=== PATIENT | male | born 2005 | race Caucasian/White ===

== ENCOUNTER 2025-02-18 10:18 | Outpatient (AMB) | payer OTHER, SELFPAY ==
--- NOTE | 2025-02-18 10:27 | MHC.PC.OV ---
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 Satellite Technician Required: No Accompanied by: Self / Same As Patient Allergies No Known Allergies Allergy (Verified 02/18/25 11:08) Medication List - Last Reconciled 02/18/25 by SHELBY Schmidt No Known Home Meds Tobacco use date assessed: 02/18/25 Dental Screening Dental Screen Date: 02/18/25 Did you have a dental visit in the last 12 months?: Yes Did you have a dental problem in the last 6 months where you did not have access to dental care?: No Was dental information given to patient?: Patient has dentist HPI 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 type 1. Both parents are fine. Problem: Establishing care, no concerns today. The patient reports right posterior neck cyst that has been present for a year reports popping it and it got bigger about 9 months ago The cyst area does not hurt, but he is aware that it is present [facility] Family History (Updated 02/18/25 @ 23:41 by SHELBY Schmidt) Sister Diabetes mellitus Sister Diabetes mellitus Social History Housing: House Patient Tobacco Use Status: Never used Tobacco Current occupational status: employed Questionnaire PHQ-9 Over the last 2 weeks, how often have you been bothered by any of the following problems? 1. Little interest or pleasure in doing things: not at all 2. Feeling down, depressed, or hopeless: not at all 3. Trouble falling or staying asleep, or sleeping too much: not at all 4. Feeling tired or having little energy: not at all 5. Poor appetite or overeating: not at all 6. Feeling bad about yourself - or that you are a failure or have let yourself or your family down: not at all 7. Trouble concentrating on things, such as reading the newspaper or watching television: not at all 8. Moving or speaking so slowly that other people could have noticed. Or the opposite - being so fidgety or restless that you have been moving around a lot more than usual: not at all 9. Thoughts that you would be better off or of hurting yourself in some way: not at all Total score: 0 Depression Screening Interpretation: Negative Depression Screening Done: Yes 42420 - PHQ-9 Billing: Yes Source: Developed by Drs. Crescencio Verma, Kaila De Santiago, Omar Parker and colleagues, with an educational deya from [employer]. Thrive Questionnaire Date Thrive assessed: 02/18/25 I am a: Patient What is your living situation today?: I have a steady place to live Within the past 12 months, did the food you bought not last and you didn't have the money to get more?: Never true Within the past 12 months, did you worry whether your food would run out before you got money to buy more?: Sometimes True Do you have trouble paying for medicines?: No Do you have trouble getting transportation to medical appointments?: No Do you have trouble paying your heating and electricity bill?: No Do you have trouble taking care of your child, family member or friend?: No Do you have trouble with day-to-day activities such as bathing, preparing meals, shopping, managing finances, etc.?: No Are you currently unemployed and looking for a job?: No Are you interested in more education?: Yes Please select the resources that you would like help with: None Currently or been in a relationship where the following occur: No concerns reported THRIVE Score: 1 AUDIT C Alcohol Use Questionnaire (AUDIT-C) 1. How often do you have a drink containing alcohol?: Never Total Score: 0 YARI-7 AMB Questionnaire YARI-7 Date YARI - 7 assessed: 02/18/25 Feeling nervous, anxious, or on edge: 0 = Not at all Not being able to stop or control worryin = Not at all Worrying too much about different things: 0 = Not at all Trouble relaxin = Not at all Being so restless that it is hard to sit still: 0 = Not at all Becoming easily annoyed or irritable: 0 = Not at all Feeling afraid as if something awful might happen: 0 = Not at all Total YARI-7 score (0-4 normal; 5-9 mild; 10-14 moderate; 15-21 severe): 0 Source: Developed by Drs. Crescencio Verma, Kaila De Santiago, Omar Parker and colleagues, with an educational deya from [employer]. YARI-7 Assessment Billing YARI-7 Assessment Tool: YARI-7 Assessment 25581 Review of Systems Const Denies headache(s) Eyes Denies loss of vision ENT Denies vertigo, Denies dizziness, Denies headache(s), Denies sore throat and Reports other (Right posterior neck cyst) Card Denies chest pain, Denies leg edema and Denies lightheadedness Resp Denies cough, Denies hemoptysis and Denies wheezing GI Denies abdominal pain, Denies melena, Denies constipation, Denies diarrhea and Denies vomiting Denies dysuria, Denies urinary frequency and Denies urinary urgency Musc Denies arthralgias, Denies joint swelling, Denies numbness and Denies tingling Skin/Breast Denies rash Neuro Denies Abnormal speech present, Denies behavioral changes, Denies vertigo, Denies dizziness, Denies headache(s), Denies loss of vision, Denies memory loss, Denies numbness and Denies tingling Psych Denies anxiety, Denies behavioral changes, Denies depression, Denies memory loss and Denies panic attacks Mahamed/Lymph Denies easy bleeding and Denies easy bruising Aller/Immun Denies wheezing Physical exam (Primary Care) Vital Signs: Last Vital Signs Temp 99.2 F 02/18/25 10:29 Pulse 79 02/18/25 10:29 Resp 16 02/18/25 10:29 BP 116/74 02/18/25 10:29 Pulse Ox 100 02/18/25 10:29 Oxygen Delivery Method Room Air 02/18/25 10:29 BMI result Body Mass Index 28.7 Tobacco/Smoking Status: Tobacco use Status Tobacco use date assessed 02/18/25 02/18/25 10:28 Patient Tobacco Use Status Never used Tobacco 02/18/25 10:35 PHQ-9: PHQ-9 Score PHQ-9: Total score 0 02/18/25 11:15 Depression Screening Interpretation: Negative Thrive Assessment: Date of Thrive Assessment Date Thrive assessed 02/18/25 02/18/25 10:28 Currently or been in a relationship where the following occur: No concerns reported Const General: healthy appearing, no acute distress, alert and awake Nutritional Appearance: well nourished Orientation/consciousness: oriented to person, oriented to place and oriented to time HENMT Ears: TM's normal bilaterally General nose exam: Normal nasal mucous membranes and turbinates present Eyes Conjunctivae: conjunctivae normal Sclerae: sclerae normal Pupils: Equal, round and reactive pupils present Neck Neck: Yes supple, Yes no JVD and Yes other (right posterior neck cyst) Thyroid: Thyroid normal Carotids: no bruits Resp Effort & Inspection: normal respiratory effort and not tachypneic Auscultation: no crackles, no rales, no rhonchi and no wheezes Cardio Rate: regular rate Rhythm: regular rhythm Heart sounds: no murmurs and normal S1 and S2 GI Palpation (GI): Soft to palpation, nontender, no hepatomegaly and no splenomegaly Auscultation: normal bowel sounds Skin General skin exam: dry skin Lesions: lesion noted (right posterior neck cyst) Neuro General: oriented to person, oriented to place and oriented to time Cranial nerves: Yes Equal, round and reactive pupils present Speech: No Abnormal speech present Gait exam (Neuro): Normal gait present Motor exam (neuro): no tremor noted Extrem Right upper extremity: full ROM Left upper extremity: full ROM Right lower extremity: full ROM; no edema Left lower extremity: full ROM; no edema Psych Mental Status: mental status grossly normal Speech and movement: Normal speech and movement present Affect: normal affect Attitude: cooperative Thought process: Normal thought process present Coding Level of Care Code New Pt Level 3 (91918) Diagnoses Dermoid cyst D36.9 Additional Codes YARI-7 Assessment Billing - YARI-7 Assessment Tool: YARI-7 Assessment 80448 ([id number]) PHQ-9 - 60417 - PHQ-9 Billing: Yes ([id number]) Time Spent (min) 35 Assessment & Plan Assessment & Plan (1) Dermoid cyst: Code(s): D36.9 - Benign neoplasm, unspecified site Category: Medical Plan: Soft tissue ultrasound to neck ordered. He is establishing care. Labs ordered, will advise Orders: Orders US soft tiss head and/or neck Today D36.9 - Benign neoplasm, unspecified site Comprehensive [place]. Panel Fast Today Z00.00 - Encounter for general adult medical examination without abnormal findings Lipid Panel Today Z00.00 - Encounter for general adult medical examination without abnormal findings UA CC w/rflx Micro + Cult Today Z00.00 - Encounter for general adult medical examination without abnormal findings Vitamin D 25-OH Total Today Z00.00 - Encounter for general adult medical examination without abnormal findings Complete Blood Count Auto Diff Today Z00.00 - Encounter for general adult medical examination without abnormal findings TSH reflex Free T4 Today Z00.00 - Encounter for general adult medical examination without abnormal findings
[2025-02-18 10:29] VITALS: BP 116/74; PULSE 79; RESP 16; TEMP 37.3; O2SAT 100; BMI 28.7
--- OUTSIDE RECORDS SUMMARY | 2025-02-18 11:28 | XMS_ITS | Clinical Summary ---
Author Organization [employer] Address [address] [place] [address] Care Team Providers Care Firebrick And Refractory Tile Repairer Name Role Phone Unavailable Primary Care Provider Unavailabl e Allergies No known active allergies Social History Tobacco Use Types Packs/Day Years Used Date Smoking Tobacco: Never Assessed Sex and Gender Information Value Date Recorded Sex Assigned at Male 06/06/2022 10:38 AM EDT Legal Sex Male 10:38 AM EDT Gender Identity Male 06/06/2022 10:38 AM EDT Sexual Orientation Don't know 06/06/2022 10 :38 AM EDT Plan of Treatment Health Maintenance Due Date Last Done Comments Depression Screening 2004 HIV Screening 2004 SDOH Screening 2004 Disability Screening 2004 Alcohol/Substance Use Screening 2016 Tobacco Screening 2016 Family Planning (PISQ) 2019 Hepatitis C Screening 2022 Meningococcal B Vaccine (2 of 2 - Trumenba SCDM 2-dose series) 05/26/2023 11/24/2022 COVID-19 Vaccine ( season) 2024 09/24/2021, 02/10/2021, 01/20/2021 Influenza Vaccine (#1) 2025 , 09/24/2021, 08/06/2020, Additional history exists Chlamydia and Gonorrhea Screening 04/12/2025 04/12/2024, 11/07/2023 DTaP/Tdap/Td Vaccines (8 - Td or Tdap) 05/22/2032 05/22/2022, 01/28/2016, 10/29/2008, Additional history exists Zoster Vaccines (1 of 2) 2054 RSV Patients and Patients Aged 60 years or older (1 - 1-dose 75+ series) 2079 Hepatitis B Vaccines Completed 06/20/2005, 03/18/2005, 2004 HIB Vaccines Completed 12/12/2005, 03/07, 01/24/2005, Additional history exists Pneumococcal Vaccine: Pediatrics (0 to 5 Years) and At-Risk Patients (6 to 49) Years Aged Out 12/12/2005, 03/18/2005, 01/24/2005, Additional history exists No longer eligible based on patient's age to complete this topic IPV Vaccines Completed 10/29/2008, 03/07, 01/24/2005, Additional history exists Hepatitis A Vaccines Completed 01/27/2015, 01/29/20 14 HPV Vaccines Completed 11/28/2016, 04/08, 01/28/2016 Meningococcal Vaccine Completed 09/24/2021, 016 RSV under 20 months Aged Out No longe r eligible based on patient's age to complete this topic Rotavirus Vaccines Aged Out No longer eligible based on patient's age to complete this topic Insurance [facility] C3
--- OUTSIDE RECORDS SUMMARY | 2025-02-18 11:28 | XMS_ITS | Encounter Summary ---
Author Organization [facility] Address [address] [place] [id number] Phone Care Team Providers Care Meat Packer Name Role Phone Toshia Harden MD Primary Care Provider Unavailabl e Encounter Details Date Type Department Care Team (Late st Contact Info) Description 06/16/2016 Documentation [facility] [place] [facility] [address] [place] [address] Family Medicine, Physician [address] [place] [address] Social History Tobacco Use Types Packs/Day Years Used Date Smoking Tobacco: Never Assessed Sex and Gender Information Value Date Recorded Sex Assigned at Male 03/15/2020 12:06 PM EDT Legal Sex Male 5:22 PM EDT Gender Identity Male 03/15/2020 12:06 PM EDT Sexual Orientation Straight 03/15/2020 12 :06 PM EDT documented as of this encounter Plan of Treatment Not on file documented as of this encounter Visit Diagnoses Not on filedocumented in this encounter Care Teams Meat Packer Relationship Specialty Start Date End Date Toshia Harden MD PCP - General 03/17/17 04/09/18 documented as of this encounter
--- OUTSIDE RECORDS SUMMARY | 2025-02-18 11:28 | XMS_ITS | Clinical Summary ---
Author Organization [facility] Address [address] [place] [address] Phone Care Team Providers Care Name Role Phone Physician, No Pcp Primary Care Provider Unavaila ble Social History Tobacco Use Types Packs/Day Years Used Date Smoking Tobacco: Never Assessed Sex and Gender Information Value Date Recorded Sex Assigned at Male 10/14/2024 9:21 AM EDT Legal Sex Male 4:51 PM EST Gender Identity Male 10/14/2024 9:21 AM EDT Sexual Orientation Straight 10/14/2024 9: 21 AM EDT Plan of Treatment Health Maintenance Due Date Last Done Comments Meningococcal B Vaccine (2 of 2 - Trumenba SCDM 2-dose series) 05/26/2023 11/24/2022 COVID-19 Vaccine ( season) 2024 09/24/2021, 02/10/2021, 01/20/2021 Annual Well Child Visit (3-21 years old) 08/16/2024 11/24/2022, 09/24/2021, 03/15/2020, Additional history exists Depression Screening 08/16/2024 HIV Screening 08/16/2024 Hepatitis C Screening 08/16/2024 Social Influencers of Health Screening 08/16/2024 Influenza Vaccine (#1) 2025 , 09/24/2021, 08/06/2020, Additional history exists DTaP,Tdap,and Td Vaccines (8 - Td or Tdap) 05/22/2032 05/22/2022, 01/28/2016, 10/29/2008, Additional history exists Hepatitis B Vaccines Completed 06/20/2005, 03/18/2005, 2004 HIB Vaccines Completed 12/12/2005, 03/07, 01/24/2005, Additional history exists Pneumococcal Vaccine: Pediatrics (0 to 5 Years) and At-Risk Patients (6 to 49 Years) Completed 12/12/2005, 03/18/2005, 01/24/2005, Additional history exists IPV Vaccines Completed 10/29/2008, 03/07, 01/24/2005, Additional history exists MMR Vaccines Completed 10/29/2008, 09/16/2005 Varicella Vaccines Completed 10/29/2008, 09/16/2005 Hepatitis A Vaccines Completed 01/27/2015, 01/29/20 14 HPV Vaccines Completed 11/28/2016, 04/08, 01/28/2016 Meningococcal ACWY Vaccine Completed 09/24/2021, RSV Immunization Patients Under 20 months Aged Out No longer eligible based on patient's age to complete this topic Insurance MEDICAID - [place] Care Teams Relationship Specialty Start Date End Date Physician, No Pcp PCP - General 10/14/24
== END 2025-02-18 11:28 | disposition home or self-care (01) ==
LOC: HO.HMCH 10:19
DX: D36.9 Benign neoplasm, unspecified site (principal)

== ENCOUNTER → 2025-02-18 10:18 | Outpatient (BNVA) | payer OTHER, SELFPAY | DX: D36.9 Benign neoplasm, unspecified site (principal) | CPT/HCPCS: 96127; 99202 ==

== ENCOUNTER 2025-02-26 10:49 | Outpatient (REF) | payer OTHER, SELFPAY ==
[2025-02-26 11:04] LABS: MANUAL DIFF FLAG NO
[2025-02-26 11:32] LABS: Hematocrit 44.6 % (42.0-52.0); Hemoglobin 15.0 g/dl (14.0-18.0); Imm Gran Abs Auto 0.02 X10*3/uL (0.00-0.03); Imm Gran Pct Auto 0.3 % (0.0-0.4); Lymphocytes Absolute Auto 1.9 X10*3/uL (1.2-4.9); Mean Corpuscular HGB Conc 33.6 g/dl (31.0-36.0); Mean Corpuscular Hemoglobin 28.5 pg (27.0-33.0); Mean Corpuscular Volume 84.6 fL (80.0-98.0); NRBC Abs Auto 0.000 X10*3/uL (0.0-0.012); NRBC Pct Auto 0.0 /100WBC (0.0-0.2); Platelet Count 286 X10*3/uL (160-400); Red Blood Count 5.27 X10*6/uL (4.60-5.80); White Blood Count 6.2 X10*3/uL (4.8-10.8)
--- OUTSIDE RECORDS SUMMARY | 2025-02-26 11:50 | XMS_ITS | Clinical Summary ---
Author Organization [facility] Address [address] [place] [address] Phone Care Team Providers Care Car Body Inspector Name Role Phone Physician, No Pcp Primary [...] Vaccine ( season) 2024 09/24/2021, 02/10/2021, 01/20/2021 Depression Screening 08/07/2024 Annual Well Child Visit (3-21 years old) 08/16/2024 11/24/2022, 09/24/2021, 03/15/2020, Additional history exists HIV Screening 08/16/2024 Hepatitis C Screening 08/16/2024 [...] topic Insurance MEDICAID - [place] Care Teams Car Body Inspector Relationship Specialty Start Date End Date Physician, No Pcp PCP - General 10/14/24
--- OUTSIDE RECORDS SUMMARY | 2025-02-26 11:50 | XMS_ITS | Clinical Summary ---
Author Organization [employer] Address [address] [place] [address] Care Team Providers Care Crop Farm Helper Name Role Phone Unavailable Primary Care Provider [...] patient's age to complete this topic Insurance [facility] C3
--- OUTSIDE RECORDS SUMMARY | 2025-02-26 11:50 | XMS_ITS | Encounter Summary ---
Author Organization [facility] Address [address] [place] [id number] Phone Care Team Providers Care Plant Custodian Name Role Phone Toshia Harden MD Primary Care Provider Unavailabl e Encounter Details Date Type Department Care Team (Late st Contact Info) Description 06/16/2016 Documentation [facility] [place] [address] [place] [address] Family Medicine, Physician [address] [place] [address] Social History Tobacco Use Types Packs/Day Years [...] on filedocumented in this encounter Care Teams Plant Custodian Relationship Specialty Start Date End Date Toshia Harden MD PCP - General 03/17/17 04/09/18 documented as of this encounter
[2025-02-26 12:13] LABS: Alanine Aminotransferase 32 U/L (0-40); Albumin Level 4.7 g/dL (3.5-5.0); Alkaline Phosphatase 75 U/L (39-117); Anion Gap 9 (12-20); Aspartate Amino Transferase 29 U/L (5-37); Blood Urea Nitrogen 14 mg/dL (9-16); Calcium 9.3 mg/dL (8.4-10.2); Carbon Dioxide 28 mmol/L (22-29); Chloride 105 mmol/L (96-108); Cholesterol 180 mg/dL (<200); Estimated Glomerular Filt Rate > 60; HDL Cholesterol 56 mg/dL (>40); Potassium 4.4 mmol/L (3.3-5.1); Sodium 138 mmol/L (135-145); Total Protein 7.4 g/dL (6.5-8.0); Triglycerides 49 mg/dL (<150)
[2025-02-26 12:45] LABS: Appearance Urine Clear; Glucose Urine UA Negative (Negative); PH 5.5 (5.0-9.0); Specific Gravity - Urine 1.025 (1.005-1.025); UMIC TRIGGER UACC YES
== END 2025-02-26 10:50 | disposition home or self-care (01) ==
LOC: HO.LAB 10:49
DX: Z00.00 Encounter for general adult medical examination without abnormal findings (principal)
CPT/HCPCS: 36415; 80053; 80061; 81001; 82306; 84443; 85025

== ENCOUNTER 2025-04-16 13:26 | Outpatient (REF) | payer OTHER, SELFPAY ==
--- NOTE | ~2025-04-16 | US_ITS ---
EXAMINATION: US HEAD NECK SOFT TISSUE HISTORY: D36.9 - Benign neoplasm, unspecified site COMPARISON: There are no prior studies available for comparison. FINDINGS: Sonographic examination of a palpable abnormality in the right posterior neck was formed. There are 2 enlarged lymph nodes noted measuring 2.7 x 0.8 x 1.8 cm and 1.6 x 0.6 x 1.1 cm. The largest node demonstrates cortical thickening measuring 4 mm. Small fatty kaylyn are seen in both nodes. US/US soft tiss head and/or neck IMPRESSION: Right posterior cervical lymphadenopathy. As these nodes may be reactive in nature, follow-up is recommended to document resolution. Electronically signed by: Crescencio Batista MD 04/17/2025 07:14 AM EDT
--- OUTSIDE RECORDS SUMMARY | 2025-04-16 16:30 | XMS_ITS | Clinical Summary ---
Author Organization [facility] Address [address] [place] [address] Phone Care Team Providers Care Assurance Sourcing Manager Name Role Phone Physician, No Pcp Primary [...] - Trumenba SCDM 2-dose series) 05/26/2023 11/24/2022 Depression Screening 08/07/2024 Annual Well Child Visit (3-21 years old) 08/16/2024 11/24/2022, 09/24/2021, 03/15/2020, Additional history exists HIV Screening 08/16/2024 Hepatitis C Screening 08/16/2024 Social Influencers of Health Screening 08/16/2024 COVID-19 Vaccine ( season) 2025 09/24/2021, 02/10/2021, 01/20/2021 Influenza Vaccine (#1) 2025 [...] topic Insurance MEDICA[place] - [place] Care Teams Assurance Sourcing Manager Relationship Specialty Start Date End Date Physician, No Pcp PCP - General 10/14/24
== END 2025-04-16 13:27 | disposition home or self-care (01) ==
LOC: HO.US 13:26
DX: D36.9 Benign neoplasm, unspecified site (principal)
CPT/HCPCS: 76536

== ENCOUNTER → 2025-04-16 13:28 | Outpatient (BNV) | payer OTHER, SELFPAY | PROVIDERS: Visit Provider Radiology Diagnostic Radiology | DX: R59.0 Localized enlarged lymph nodes (principal) | CPT/HCPCS: 76536 ==

== ENCOUNTER 2025-04-30 15:54 | Outpatient (AMB) | payer OTHER, SELFPAY ==
--- NOTE | 2025-04-30 16:00 | MHC.PC.OV ---
Vital Signs 04/30/25 16:02 Height 5 ft 3 in Weight 163 lb 4 oz BMI 28.9 BP 120/64 Blood Pressure Location Lt brachial Position Sitting Pulse 79 Pulse Source Pulse Oximeter Temp 97.1 F Temp Source Temporal Artery Scan Pulse Oximetry (%) 98 Oxygen Delivery Method Room Air Intake Visit Reasons: annual physical Intake Note: Patient is here today for a physical. Complaint of sinus pressure with pain in nose area and pain at the back of throat. Architectural Representative Required: No Pre Sales Systems Engineer: Not Required per policy Accompanied by: Self / Same As Patient Allergies No Known Allergies Allergy (Verified 04/30/25 16:02) Medication List - Last Reconciled 04/30/25 by Rafita Cabrera MD No Known Home Meds Tobacco use date assessed: 04/30/25 Dental Screening Dental Screen Date: 02/18/25 HPI HPI Comments History of Present Illness Details The patient is a 19-year-old male presenting for an annual physical examination and evaluation of sinus pressure and throat pain. The patient reports experiencing sinus pressure and pain in the nasal area, which has been persistent. Additionally, he describes pain in the back of the throat, suggesting pharyngitis. He mentions a history of enlarged lymph nodes, which have been present for approximately two years without significant change or associated symptoms. The lymph nodes were noted to be enlarged but not concerning at this time, with a plan to repeat an ultrasound in six months if they do not resolve. The patient also reports vision issues, specifically dryness and irritation, particularly when exposed to sunlight. He wears contact lenses and experiences frequent blinking while driving, which may exacerbate the dryness. He denies any use of tobacco, alcohol, or recreational drugs. He is sexually active but does not consistently use protection. There is no significant family history of cancer or other major illnesses, although there is a mention of siblings with diabetes diagnosed at a young age. [facility] Surgical History (Updated 04/30/25 @ 16:08 by MUNA Saha) No pertinent past surgical history Family History (Updated 04/30/25 @ 16:00 by MUNA Saha) Sister Diabetes mellitus Sister Diabetes mellitus Social History (Updated 04/30/25 @ 16:01 by MUNA Saha) Housing: House Alcohol intake: never Patient Tobacco Use Status: Never used Tobacco e-Cigarette/Vaping Use: Never Used Second Hand Smoke Exposure: No service: No Current occupational status: employed Cognitive needs: No Hearing needs: No Vision needs: No Questionnaire Thrive Questionnaire Date Thrive assessed: 02/18/25 I am a: Patient What is your living situation today?: I have a steady place to live Within the past 12 months, did the food you bought not last and you didn't have the money to get more?: Never true Within the past 12 months, did you worry whether your food would run out before you got money to buy more?: Sometimes True Do you have trouble paying for medicines?: No Do you have trouble getting transportation to medical appointments?: No Do you have trouble paying your heating and electricity bill?: No Do you have trouble taking care of your child, family member or friend?: No Do you have trouble with day-to-day activities such as bathing, preparing meals, shopping, managing finances, etc.?: No Are you currently unemployed and looking for a job?: No Are you interested in more education?: Yes Please select the resources that you would like help with: None Currently or been in a relationship where the following occur: No concerns reported THRIVE Score: 1 AUDIT C Alcohol Use Questionnaire (AUDIT-C) 3. How often do you have six or more drinks on one occasion?: Never Total Score: 0 YARI-7 AMB Questionnaire YARI-7 Date YARI - 7 assessed: 02/18/25 Source: Developed by Drs. Crescencio Verma, Kaila De Santiago, Omar Parker and colleagues, with an educational deya from [employer]. Review of Systems Const Details: Positives besides what was mentioned in HPI are in BOLD Constitutional: No Weight Change, No Fever, No Chills, No Night Sweats, No Fatigue, No Malaise ENT/Mouth: No Hearing Changes, No Ear Pain, No Nasal Congestion, No Sinus Pain, No Hoarseness, No sore throat, No Rhinorrhea, No Swallowing Difficulty Eyes: No Eye Pain, No Swelling, No Redness, No Foreign Body, No Discharge, No Vision Changes Cardiovascular: No Chest Pain, No SOB, No PND, No Dyspnea on Exertion, No Orthopnea, No Claudication, No Edema, No Palpitations Respiratory: No Cough, No Sputum, No Wheezing, No Smoke Exposure, No Dyspnea Gastrointestinal: No Nausea, No Vomiting, No Diarrhea, No Constipation, No Pain, No Heartburn, No Anorexia, No Dysphagia, No Hematochezia, No Melena, No Flatulence, No Jaundice Genitourinary: No Dysmenorrhea, No DUB, No Dyspareunia, No Dysuria, No Urinary Frequency, No Hematuria, No Urinary Incontinence, No Urgency, No Flank Pain, No Urinary Flow Changes, No Hesitancy Musculoskeletal: No Arthralgias, No Myalgias, No Joint Swelling, No Joint Stiffness, No Back Pain, No Neck Pain, No Injury History Skin: No Skin Lesions, No Pruritis, No Hair Changes, No Breast/Skin Changes, No Nipple Discharge Neuro: No Weakness, No Numbness, No Paresthesias, No Loss of Consciousness, No Syncope, No Dizziness, No Headache, No Coordination Changes, No Recent Falls Psych: No Anxiety/Panic, No Depression, No Insomnia, No Personality Changes, No Delusions, No Rumination, No SI/HI/AH/VH, No Social Issues, No Memory Changes, No Violence/Abuse Hx., No Eating Concerns Heme/Lymph: No Bruising, No Bleeding, No Transfusions History, No Lymphadenopathy Endocrine: No Polyuria, No Polydipsia, No Temperature Intolerance Physical exam (Primary Care) Vital Signs: Last Vital Signs Temp 97.1 F 04/30/25 16:02 Pulse 79 04/30/25 16:02 BP 120/64 04/30/25 16:02 Pulse Ox 98 04/30/25 16:02 Oxygen Delivery Method Room Air 04/30/25 16:02 BMI result Body Mass Index 28.9 Tobacco/Smoking Status: Tobacco use Status Tobacco use date assessed 04/30/25 04/30/25 16:11 Patient Tobacco Use Status Never used Tobacco 04/30/25 16:11 e-Cigarette/Vaping Use Never Used 04/30/25 16:11 Thrive Assessment: Date of Thrive Assessment Date Thrive assessed 02/18/25 04/30/25 16:11 Currently or been in a relationship where the following occur: No concerns reported Const Other: Pertinent findings are in BOLD GENERAL APPEARANCE NAD, activity normal for age, well developed/ well nourished, no cyanosis, pallor, or diaphoresis. EYES lids/conjunctiva normal. EARS/NOSE/THROAT Mucous membranes moist, nares normal, lips/teeth normal uvula midline without oral pharyngeal erythema, exudate or swelling TMs normal bilaterally. No lymphangitis/lymphedema. HEAD/NECK normocephalic atraumatic, no facial trauma, neck is supple. RESPIRATORY respiratory effort normal, speaks in full sentences, no tripod position, no accessory muscle use. Lungs clear to auscultation without rhonchi, wheezes, rales CARDIAC Regular rate and rhythm, no edema. ABDOMINAL Soft, ND/NT. No evidence of fluid wave. No pulsatile masses on exam, rebound tenderness, Morales sign or pain over Mcburney's point. MUSCLES/EXTREMITIES No abnormal range of motion, no swelling. SKIN Warm, pink and dry. No rashes, dermatoses, petechiae or lesions. NEUROLOGICAL Speech is clear and appropriate. Normal level of consciousness. Gait and coordination are normal. 5/5 strength in all extremities. PSYCH Normal mood and affect. Judgement/competence is appropriate Results AMB Rapid Strep AMB Rapid Strep Negative Last Edit by MUNA Saha on 04/30/25 16:29 Coding Level of Care Code Est Pt Prev Care 18-39y(95827) Diagnoses Eyes sensitive to light H53.149 Dermoid cyst D36.9 Annual physical exam Z00.00 Pharyngitis J02.9 Assessment & Plan Assessment & Plan (1) Eyes sensitive to light: Code(s): H53.149 - Visual discomfort, unspecified Category: Medical Plan: Ophthalmology referral. Patient will call his Opht[facility] ad schedule appointment with them. (2) Dermoid cyst: Code(s): D36.9 - Benign neoplasm, unspecified site Category: Medical Plan: Repeat US in 6 months. (3) Annual physical exam: Code(s): Z00.00 - Encounter for general adult medical examination without abnormal findings Category: Medical Plan: CBC, CMP, Lipid panel, A1C, TSH w T4. Next visit. Vaccines to be discussed with next visit. Colonoscopy: 45-75. Due at 45. AAA: NI. Ct lung: NI. PSA: NI. HIV: To be addressed with next visit. HBV: To be addressed with next visit. HCV: To be addressed with next visit. (4) Pharyngitis: Code(s): J02.9 - Acute pharyngitis, unspecified Category: Medical Plan: Amoxicilline for 10 days. In clinic rapid test negative. Plan During the visit, we discussed the patient's symptoms of sinus pressure and throat pain, which may indicate sinusitis and pharyngitis. Irecommended amoxcilline. We also discussed the patient's enlarged lymph nodes, with a plan to monitor them via ultrasound in six months. For vision issues related to dryness, I suggested using lubricating eye drops and consulting an physician credentialing specialist if needed. We emphasized the importance of using protection during sexual activity to prevent sexually transmitted infections. Orders: Orders US soft tiss head and/or neck 09/09/25 D36.9 - Benign neoplasm, unspecified site AMB Rapid Strep Screen Today Z13.9 - Encounter for screening, unspecified
[2025-04-30 16:02] VITALS: BP 120/64; PULSE 79; TEMP 36.2; O2SAT 98; BMI 28.9
--- OUTSIDE RECORDS SUMMARY | 2025-04-30 17:58 | XMS_ITS | Encounter Summary ---
Author Organization [facility] Address [address] [place] [phone] Phone Care Team Providers Care Crop Research Scientist Name Role Phone Toshia Harden MD Primary Care Provider Unavailabl e Encounter Details Date Type Department Care Team (Late st Contact Info) Description 10/19/2016 Documentation [facility] [address] [place] [address] Family Medicine, Physician [address] [place] [address] Social History Tobacco Use Types Packs/Day Years [...] on filedocumented in this encounter Care Teams Crop Research Scientist Relationship Specialty Start Date End Date Toshia Harden MD PCP - General 03/17/17 04/09/18 documented as of this encounter
--- OUTSIDE RECORDS SUMMARY | 2025-04-30 17:58 | XMS_ITS | Encounter Summary ---
Author Organization [facility] Address [address] [place] [id number] Phone Care Team Providers Care Service Aide Name Role Phone Toshia Harden MD Primary Care Provider Unavailabl e Encounter Details Date Type Department Care Team (Late st Contact Info) Description 03/23/2017 Conversion Encounter [facility] - [address] [phone] Social History Tobacco Use Types Packs/Day Years [...] on filedocumented in this encounter Care Teams Service Aide Relationship Specialty Start Date End Date Toshia Harden MD PCP - General 03/17/17 04/09/18 documented as of this encounter
--- OUTSIDE RECORDS SUMMARY | 2025-04-30 17:58 | XMS_ITS | Encounter Summary ---
Author Organization [facility] Address [address] [place] [phone] Phone Care Team Providers Care Snapper On Name Role Phone Toshia Harden MD Primary Care Provider Unavailabl e Encounter Details Date Type Department Care Team (Late st Contact Info) Description 06/16/2016 Documentation [facility] [place] Family Medicine [address] [place] [address] Family Medicine, Physician [address] [place] [address] Social History Tobacco Use Types Packs/Day Years [...] on filedocumented in this encounter Care Teams Snapper On Relationship Specialty Start Date End Date Toshia Harden MD PCP - General 03/17/17 04/09/18 documented as of this encounter
--- OUTSIDE RECORDS SUMMARY | 2025-04-30 17:58 | XMS_ITS | Encounter Summary ---
Author Organization [facility] Address [address] [place] [address] Phone Care Team Providers Care Death Claim Clerk Name Role Phone Toshia Harden MD Primary Care Provider Unavailabl e Encounter Details Date Type Department Care Team (Late st Contact Info) Description 11/04/2011 Documentation [facility] [place] Family Medicine [address] [place] [address] Family Medicine, Physician [address] [place] [address] Social History Tobacco Use Types Packs/Day Years [...] on filedocumented in this encounter Care Teams Death Claim Clerk Relationship Specialty Start Date End Date Toshia Harden MD PCP - General 03/17/17 04/09/18 documented as of this encounter
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
--- OUTSIDE RECORDS SUMMARY | 2025-04-30 17:58 | XMS_ITS | Encounter Summary ---
Author Organization [facility] Address [address] [place] [phone] Phone Care Team Providers Care Ambulance Officer Name Role Phone Toshia Harden MD Primary Care Provider Unavailabl e Encounter Details Date Type Department Care Team (Late st Contact Info) Description 02/06/2014 Documentation [facility] [place] Family Medicine [address] [place] [address] Family Medicine, Physician [address] [place] [address] Social History Tobacco Use Types Packs/Day Years [...] on filedocumented in this encounter Care Teams Ambulance Officer Relationship Specialty Start Date End Date Toshia Harden MD PCP - General 03/17/17 04/09/18 documented as of this encounter
--- OUTSIDE RECORDS SUMMARY | 2025-04-30 17:58 | XMS_ITS | Encounter Summary ---
Author Organization [facility] Address [address] [place] [address] Phone Care Team Providers Care Ac/Dc Rewinder Name Role Phone Toshia Harden MD Primary Care Provider Unavailabl e Encounter Details Date Type Department Care Team (Late st Contact Info) Description 04/05/2010 Documentation [facility] [place] [address] [place] [address] Family Medicine, Physician [address] [place] [address] Social History Tobacco Use Types Packs/Day Years [...] on filedocumented in this encounter Care Teams Ac/Dc Rewinder Relationship Specialty Start Date End Date Toshia Harden MD PCP - General 03/17/17 04/09/18 documented as of this encounter
--- OUTSIDE RECORDS SUMMARY | 2025-04-30 17:58 | XMS_ITS | Encounter Summary ---
Author Organization [facility] Address [address] [place] [address] Phone Care Team Providers Care Manager Commercial Sales Name Role Phone Toshia Harden MD Primary Care Provider Unavailabl e Encounter Details Date Type Department Care Team (Late st Contact Info) Description 02/06/2014 Documentation [facility] [place] [address] [place] [address] Family Medicine, Physician [address] [place] [address] Social History Tobacco Use Types Packs/Day Years [...] on filedocumented in this encounter Care Teams Manager Commercial Sales Relationship Specialty Start Date End Date Toshia Harden MD PCP - General 03/17/17 04/09/18 documented as of this encounter
--- OUTSIDE RECORDS SUMMARY | 2025-04-30 17:58 | XMS_ITS | Encounter Summary ---
Author Organization [facility] Address [address] [place] [address] Phone Care Team Providers Care Alumni Relations Officer Name Role Phone Toshia Harden MD Primary Care Provider Unavailabl e Encounter Details Date Type Department Care Team (Late st Contact Info) Description 02/05/2014 Documentation [facility] [place] Family Medicine [address] [place] [address] Family Medicine, Physician [address] [place] [address] Social History Tobacco Use Types Packs/Day Years [...] on filedocumented in this encounter Care Teams Alumni Relations Officer Relationship Specialty Start Date End Date Toshia Harden MD PCP - General 03/17/17 04/09/18 documented as of this encounter
--- OUTSIDE RECORDS SUMMARY | 2025-04-30 17:58 | XMS_ITS | Encounter Summary ---
Author Organization [facility] Address [address] [place] [phone] Phone Care Team Providers Care Bridge Gang Worker Name Role Phone Toshia Harden MD Primary Care Provider Unavailabl e Encounter Details Date Type Department Care Team (Late st Contact Info) Description 10/13/2016 Documentation [facility] [place] Family Medicine [address] [place] [address] Family Medicine, Physician [address] [place] [address] Social History Tobacco Use Types Packs/Day Years [...] on filedocumented in this encounter Care Teams Bridge Gang Worker Relationship Specialty Start Date End Date Toshia Harden MD PCP - General 03/17/17 04/09/18 documented as of this encounter
--- OUTSIDE RECORDS SUMMARY | 2025-04-30 17:58 | XMS_ITS | Clinical Summary ---
Author Organization [facility] Address [address] [place] [address] Phone Care Team Providers Care Operator Weapon Locating Radar Name Role Phone Physician, No Pcp Primary [...] topic Insurance MEDICAID - [place] Care Teams Operator Weapon Locating Radar Relationship Specialty Start Date End Date Physician, No Pcp PCP - General 10/14/24
--- OUTSIDE RECORDS SUMMARY | 2025-04-30 17:58 | XMS_ITS | Encounter Summary ---
Author Organization [facility] Address [address] [place] [phone] Phone Care Team Providers Care Instructor [employer] Name Role Phone Toshia Harden MD Primary Care Provider Unavailabl e Encounter Details Date Type Department Care Team (Late st Contact Info) Description 07/27/2016 Documentation [facility] [place] Family Medicine [address] [place] [address] Family Medicine, Physician [address] [place] [address] Social History Tobacco Use Types Packs/Day Years [...] on filedocumented in this encounter Care Teams Instructor [employer] Treatment [employer] Relationship Specialty Start Date End Date Toshia Harden MD PCP - General 03/17/17 04/09/18 documented as of this encounter
== END 2025-04-30 16:48 | disposition home or self-care (01) ==
LOC: HO.HMCH 15:55
PROVIDERS: PCP Internal Medicine; Visit Provider Internal Medicine
DX: H53.149 Visual discomfort, unspecified (principal); D36.9 Benign neoplasm, unspecified site; Z00.00 Encounter for general adult medical examination without abnormal findings; J02.9 Acute pharyngitis, unspecified; Z13.9 Encounter for screening, unspecified

== ENCOUNTER → 2025-04-30 15:54 | Outpatient (BNVA) | payer OTHER, SELFPAY | PROVIDERS: Visit Provider Internal Medicine | DX: Z00.00 Encounter for general adult medical examination without abnormal findings (principal); H53.149 Visual discomfort, unspecified; R59.0 Localized enlarged lymph nodes; J02.9 Acute pharyngitis, unspecified | CPT/HCPCS: 87880; 99395 ==